=== PATIENT | female | born 1970 | race African-American/Black ===

== ENCOUNTER 2017-09-06 13:37 | Emergency (ER) | payer OTHER ==
[~2017-09-06] VITALS: Ht 157.5 cm; Wt 129.3 kg
--- NOTE | ~2017-09-06 | EKG ---
[address] [address] [place] [address] ELECTROCARDIOGRAM REPORT Name: MONICA NOGUERA [facility] [id number] Admission: 09/06/17 Attend Phys: Discharge: 09/06/17 Date of : 70 Report #: [id number] THIS REPORT FOR: //name// [facility] ED Test Date: 2017-09-06 Test Time: 14:05:55 Pat Name: MONICA NOGUERA Department: Room: Gender: F [employer] Programmer: : 1970 Requested By: Antonio Colby Order Number: [id number] MD: Leonardo Aleman Measurements Intervals [place] Rate: 70 P: 32 NV: 167 QRS: 10 QRSD: 86 T: 19 QT: 379 QTc: 409 Interpretive Statements Sinus rhythm Early R-wave progression Compared to ECG 11/28/2010 16:02:49 No significant changes Electronically Signed On 09-07-2017 7:57:17 CDT by Leonardo Aleman [email or web address] <ELECTRONICALLY SIGNED> By: Leonardo Aleman MD, [facility] 09/07/17 [id number] 1405 Leonardo Aleman MD, FACC /EPI
[~2017-09-06 13:37] MED LIST: CIPROFLOXACIN500 M1 PO; DENIES; FLAGYL500 MG PO; KEFLEX500 MG PO; MIRALAX17 GM PO; NOHOMEMEDICATIONS; NORCO 5-325 TA1 EACH PO; PANTOPRAZOLE SO40 M1 PO; ULTRAM 50MG TAB50 MG PO
[2017-09-06 14:28] LABS: ABSOLUTE NEUTROPHILS 1.6 thou/uL (1.4-8.2); BASOPHILS 1.1 % (0.0-2.0); EOSINOPHILS 2.9 % (0.0-3.0); HEMATOCRIT 34.2 % (37.0-47.0); HEMOGLOBIN 11.4 gm/dL (12.0-15.0); LYMPHOCYTES 41.8 % (24.0-44.0); MCH 26.6 pg (26.0-34.0); MCHC 33.2 g/dL (28.0-37.0); MONOCYTES 10.3 % (1.0-8.0); PLATELET COUNT 284 thou/uL (150-400); POLYS 43.9 % (36.0-66.0); RBC 4.28 mil/uL (4.20-5.00); RDW 15.6 % (10.5-14.5); WBC 3.6 thou/uL (4.0-11.0)
[2017-09-06 14:41] LABS: ANION GAP 9 mmol/L (7-16); BUN 9 mg/dL (7-18); CALCIUM 8.6 mg/dL (8.5-10.1); CHLORIDE 104 mmol/L (98-107); CO2 27 mmol/L (21-32); CREATININE 0.8 mg/dL (0.6-1.0); GLUCOSE 94 mg/dL (74-106); POTASSIUM 3.6 mmol/L (3.5-5.1); SODIUM 140 mmol/L (136-145)
[2017-09-06 14:42] LABS: PROTIME 10.2 Seconds (9.3-11.4)
[2017-09-06 14:50] LABS: ALBUMIN 3.4 g/dL (3.4-5.0); SGOT 25 U/L (15-37); SGPT 30 U/L (30-65); TOTAL BILIRUBIN 0.6 mg/dL (<0.1-1.0); TOTAL PROTEIN 7.9 g/dL (6.4-8.2); TROPONIN-I <0.06 ng/mL (<0.06)
[2017-09-06 15:10] LABS: URINE BILIRUBIN NEGATIVE (Negative); URINE BLOOD 2+ (Negative); URINE CLARITY CLEAR; URINE COLOR YELLOW; URINE GLUCOSE-RANDOM* NEGATIVE (Negative); URINE KETONES NEGATIVE (Negative); URINE LEUKOCYTES NEGATIVE (Negative); URINE NITRITE NEGATIVE (Negative); URINE PROTEIN (DIPSTICK) NEGATIVE (Negative); URINE SPECIFIC GRAVITY 1.015 (1.005-1.035); URINE UROBILINOGEN 0.2 E.U./dl (0.2-1.0)
[2017-09-06 15:18] LABS: AMP/METHAMP Negative (Negative); BARBITURATES Negative (Negative); BENZODIAZEPINES Negative (Negative); CASTS None Seen /LPF (None Seen); COCAINE Negative (Negative); CRYSTALS None Seen /LPF (None Seen); METHADONE Negative (Negative); OPIATES Negative (Negative); PCP Negative (Negative); SQUAMOUS 4-10 Moderate /LPF (0-3); URINE RBC 3-10 Few /HPF (0-2); URINE WBC None Seen /HPF (0-5)
[2017-09-06 15:19] LABS: BACTERIA 1-9 Few /HPF (None Seen)
[2017-09-06] MEDS ORDERED: BUTALB-APAP-CA1 EACH PO (17:17)
== END 2017-09-06 18:18 | disposition home or self-care (01) ==
LOC: ER 13:37
PROVIDERS: Physician Assistant
DX: F12.90 Cannabis use, unspecified, uncomplicated (principal); R20.0 Anesthesia of skin; R51 Headache; R42 Dizziness and giddiness; J45.909 Unspecified asthma, uncomplicated; I10 Essential (primary) hypertension; Z91.041 Radiographic dye allergy status